=== PATIENT | male | born 1980 | race African-American/Black ===

== ENCOUNTER 2017-01-30 11:34 | Inpatient (IN) | payer BC ==
--- NOTE | ~2017-01-30 | CT2 ---
[facility] A Service of [facility] & [facility] RADIOLOGY TEXT RESULTS PATIENT: BRIT HUGHES JR LOCATION: [facility] 218-01 : [birth year] UNIT #: [id number] AGE: [address]: Keila Langston MD SEX: M ORDER DR: [id number] [facility] [address] [place], [place] [address] [id number] I MR#: [id number] #: [id number] NAME: BRIT HUGHES JR : 1980 SEX: M STUDY DATE/TIME: 01/30/2017 19:46 UNIT: C2A ROOM: 218 STUDY DESCRIPTION: CT Abd and Pelv W Cont Attending Physician: Floresita López M.D. Referring Physician: Ramiro Zamarripa Ordering Physician: Floresita López M.D. Primary Care Physician: No Primary Care Physician MEDICAL IMAGING REPORT This report is preliminary unless electronic signature is present EXAM CT abdomen and pelvis with IV contrast HISTORY Bilateral groin pain and redness and drainage and abscess for [address] exam was performed with one or more of the following radiation dose reduction techniques: automatic control, adjustment of mA and/or kV according to patient size, and iterative reconstruction. FINDINGS IV contrast CT abdomen and pelvis was performed with no prior study for comparison. CT ABDOMEN: Diffuse fatty infiltration of the liver. No hepatic mass or biliary dilatation. Gallbladder, spleen, pancreas, kidneys, and adrenal glands are essentially unremarkable. Incidental 1 cm cyst in the lateral mid-right kidney. No ascites. No adenopathy. No bowel dilatation. CT PELVIS: Normal appendix. No free fluid. Mild adenopathy in the groin bilaterally measuring up to 1.4 cm in short axis dimension bilaterally. There is focal skin thickening and underlying subcutaneous stranding in the groin bilaterally, moderate on the right and mild on the left, suggesting cellulitis. No drainable fluid collection or abscess. Urinary bladder is normal. IMPRESSION 1. Focal skin thickening in the groin bilaterally with underlying subcutaneous stranding, moderate on the right and mild on the left suggesting cellulitis. No drainable fluid collection. 2. Mild adenopathy in the groin bilaterally measuring up to 1.4 cm in short axis dimension bilaterally could be reactive or inflammatory. [facility] A Service of [facility] & [facility] RADIOLOGY TEXT RESULTS PATIENT: BRIT HUGHES JR LOCATION: [facility] 218-01 : [birth year] UNIT #: [id number] AGE: [address]: Keila Langston MD SEX: M ORDER DR: No fatty infiltration of the liver. 3. Normal appendix. Dictated by... Tarun Mcintosh M.D. THIS IS AN ELECTRONICALLY VERIFIED REPORT Tarun Mcintosh M.D. at 01/31/2017 2:59 PM DFL/indira TD: 01/31/2017 01:32 JOB #: [id number] MEDICAL IMAGING REPORT Page 1 of 1 COPY
--- NOTE | ~2017-01-30 | HP ---
Unit #: [id number] #: [id number] Patient: BRIT HUGHES JR [id number] [address] [place], [place] [address] [id number] I MR#: [id number] NAME: BRIT HUGHES JR ROOM: 218 Age: 36 Sex: M Admission Date: 01/30/2017 : 1980 Attending Physician: Floresita López M.D. Referring Physician: Ramiro Zamarripa Primary Care Physician: Primary Care Physician No HISTORY AND PHYSICAL CHIEF COMPLAINT Abscess. HISTORY OF PRESENT ILLNESS The patient is a 36-year-old male with past medical history of hypertension, diabetes, who presented to [facility] for evaluation of the above. The patient states that he has had about a one-month history of intermittent abscesses involving the groin. He states that most recently it has been going on for about a week. He initially saw his primary care physician on 01/26/2017. He was placed on Bactrim which he has been taking as prescribed. He returned today and was told to go to the emergency department for further evaluation. He states that the area started as a boil and had become increasingly worse. The right groin is currently draining pus. He denies any fever. No cough or cold symptoms. No bowel or bladder problems. In the emergency department, he was given vancomycin and Zosyn. He was transferred to [facility] for admission. PAST MEDICAL HISTORY 1. Hypertension. 2. Diabetes. PAST SURGICAL HISTORY None. ALLERGIES No known allergies. HOME MEDICATIONS Include: 1. Metformin 500 mg b.i.d. 2. Amlodipine 5 mg daily. 3. Zestoretic 09/09.5, unknown frequency. 4. Bactrim DS b.i.d. SOCIAL HISTORY The patient lives with his . There is no tobacco or alcohol use. He works in the warehouse. FAMILY HISTORY Notable for both parents having diabetes. Unit #: [id number] #: [id number] Patient: BRIT HUGHES JR REVIEW OF SYSTEMS A complete review of systems is negative except as indicated in the HPI. The patient states that he has been on other antibiotics as well. The most recent antibiotic was Bactrim. The patient states that he does not routinely check his blood sugars at home. PHYSICAL EXAMINATION VITAL SIGNS: Temperature 97.5, pulse 78, respirations 20, blood pressure 108/78, oxygen saturation 100% on room air. GENERAL: The patient is a very pleasant male who is awake and alert in no acute distress. HEENT: Head is atraumatic. Mucous membranes are moist. NECK: Supple. Trachea is midline. LUNGS: Clear to auscultation bilaterally with no increased work of breathing. HEART: Regular rate and rhythm. ABDOMEN: Soft, nontender. Bowel sounds present in all four quadrants. GENITOURINARY: The right inguinal area demonstrates an approximately 2 x 1 cm area of induration that extends into the right scrotum. He is tender to palpation in this area. There is also yellow fluid actively draining. The left inguinal area demonstrates induration as well. NEUROLOGIC: Patient is awake and alert. He follows commands. PSYCHIATRIC: Mood and affect are normal. Patient is cooperative. SKIN: Demonstrates the previously described abnormalities. DIAGNOSTIC STUDIES LABORATORY: Comprehensive metabolic panel notable for glucose of 193. Complete blood count notable for hemoglobin 12.9, hematocrit 37.2. Lactic acid 1.7. ASSESSMENT The patient is a 36-year-old male with: 1. Bilateral groin abscesses/cellulitis possibly involving the scrotum as well. 2. Hypertension. 3. Diabetes. PLAN 1. Admit to med-surg. 2. N.p.o. until CT results. 3. CT of abdomen and pelvis with IV contrast for further evaluation of groin and possibly scrotal abscesses. 4. N.p.o. after midnight for possible surgical intervention. 5. Consult [facility] regarding groin/scrotal abscess. 6. Blood cultures x2. 7. Wound culture and sensitivity. 8. Vancomycin IV and Zosyn IV pending further workup. 9. P.r.n. morphine. 10. P.r.n. Zofran. 11. Hemoglobin A1c. 12. Low-dose sliding scale insulin with Accu-Cheks. 13. Repeat labs in the morning. 14. SCDs for DVT prophylaxis. 15. Additional workup and consultants based on above. Unit #: [id number] #: [id number] Patient: BRIT HUGHES Dictated by Floresita López M.D. SUMIT/haven TD: 01/30/2017 20:13 JOB #: [id number] HISTORY AND PHYSICAL Page 1 of 1 X Floresita López MD HISTORY AND PHYSICAL
--- NOTE | ~2017-01-30 | CO ---
Unit #: [id number] #: [id number] Patient: BRIT HUGHES JR [id number] [address] [place], [place] [address] [id number] I MR#: [id number] NAME: BRIT HUGHES JR ROOM: 218 Age: 36 Sex: M Admission Date: 01/30/2017 : 1980 Attending Physician: Keila Langston M.D. Consultation Date: 01/31/2017 CONSULTATION REPORT HISTORY OF PRESENT ILLNESS A 36-year-old, black male, acute on chronic hidradenitis suppurativa of both groin areas, right side greater than the left with increased drainage over the last [address] scan however shows no drainable abscess in either groin. Wound culture is pending. This patient is a diabetic, hypertensive, slightly obese black male. He is a nonsmoker and nondrinker. Does work outside of the home. ALLERGIES He has no known allergies. MEDICATIONS As listed per nurse's notes, including Glucophage and amlodipine. PHYSICAL EXAMINATION GENERAL: Cooperative, alert white male. Oriented x3. HEENT: Clear. There is no jaundice. Pupils are equal and reactive to light and accommodation. CHEST: Clear to auscultation and percussion. In both axillae, there does not appear to be any active hidradenitis. ABDOMEN: Soft, nontender. No masses. CARDIAC: Rhythm is regular. No murmurs. : In both groin areas, especially on the right side, there is some drainage and oozing of the sweat glands, consistent with hidradenitis. This extends down into both groin areas in between both legs up on the right area of the scrotum a little bit. There does not appear to be any in the perineal area or other areas. EXTREMITIES: Full range of motion. 1 to 2+ peripheral pulses. IMPRESSION Acute on chronic hidradenitis suppurativa of both groin areas, right greater than left with no drainable abscess. PLAN At this time, we will use local care. If he improves, we will continue present therapy. If he does not, we will take him to surgery at a later point. Dictated by... Oscar Lynne M.D. RICHARD/marlin Unit #: [id number] #: [id number] Patient: ELLENBRIT JR TD: 01/31/2017 06:47 JOB #: [id number] CONSULTATION REPORT Page 1 of 1 X Oscar Lynne MD CONSULTATION REPORT
--- NOTE | ~2017-01-30 | DS ---
Unit #: [id number] #: [id number] Patient: BRIT HUGHES JR [id number] [address] [place], [place] [address] [id number] I MR#: [id number] NAME: BRIT HUGHES JR ROOM: 218 Age: 36 Sex: M Admission Date: 01/30/2017 : 1980 Discharge Date: 02/01/2017 Attending Physician: Keila Langston M.D. Referring Physician: Ramiro Zamarripa Primary Care Physician: No Primary Care Physician DISCHARGE SUMMARY REASON FOR ADMISSION Bilateral groin abscess. HISTORY OF PRESENT ILLNESS/HOSPITAL COURSE Please see H and P for complete details of initial partial hospital stay. Patient underwent CT of abdomen and pelvis on 01/30/2017 for concern for possible larger abscess and/or free fluid within the pelvis/scrotal area with focal skin thickening, which was noted bilaterally, moderate on the right and mild on the left suggesting more cellulitis but no acute abscess was noted. Consultation was placed to [facility] for evaluation of two bilateral groin abscessed. They recommended initial IV antibiotics and now have been transitioned to p.o. antibiotics. No surgical intervention was done while the patient was here. Patient did undergo an I and D while in the emergency room. Wound cultures did not yield any acute bacterial growth. Blood cultures have been unremarkable as well. In regards to his past medical history of diabetes, his hemoglobin A1c is 6.8%. He was maintained on routine medications while he was here. At this point in time, the patient has currently been cleared for discharge by [facility]. He will be given a prescription for Bactroban b.i.d., as well as doxycycline for an additional ten days. He will followup with [facility], Dr. Arevalo in approximately seven days. Followup with PCP in seven to ten days. FINAL DISCHARGE DIAGNOSES 1. Bilateral groin abscess likely secondary to hydradenitis suppurativa. 2. Diabetes with fair control. Hemoglobin A1c 6.8%. 3. Hypertension. FINAL DISCHARGE MEDICATIONS 1. Doxycycline 100 mg p.o. b.i.d. x10 days. 2. Bactroban topical b.i.d. 3. Glucophage 500 mg p.o. b.i.d. 4. Norvasc 5 mg p.o. daily. 5. Lisinopril 10 mg p.o. daily. DISCHARGE CONDITION Stable. Unit #: [id number] #: [id number] Patient: BRIT HUGHES JR DISCHARGE DISPOSITION Home. FOLLOWUP Followup with PCP/[facility] as stated above. Dictated by... Tasha Whalen/baron TD: 02/03/2017 07:24 JOB #: [id number] DISCHARGE SUMMARY Page 1 of 1 X Keila Langston MD X DISCHARGE SUMMARY
[2017-01-30] MEDS ORDERED: GLUCOPHAGE500 MG PO (11:46)
[2017-01-30] MEDS ORDERED: LISINOPRIL PO (11:46)
[2017-01-30] MEDS ORDERED: AMLODIPINE BESYL5 MG PO (11:47)
[2017-01-30 12:49] LABS: BASOPHIL% 0.6 % (0-2.5); EOSINOPHIL# 0.1 X10e3 (0-0.7); EOSINOPHIL% 1.2 % (0.0-7.0); HEMATOCRIT 37.2 % (38.0-50.0); HEMOGLOBIN 12.9 gm/dL (13.0-16.0); LYMPHOCYTE# 1.7 X10e3 (1.0-3.5); MEAN CELL VOLUME 87.4 FL (83-96); MEAN CORPUSCULAR HEMOGLOBIN 30.2 PG (28-34); MEAN CORPUSCULAR HGB CONC 34.6 g/dL (30-36); MEAN PLATELET VOLUME 7.1 FL (6.5-11.5); MONOCYTE# 0.5 X10e3 (0-1.0); MONOCYTE% 7.4 % (3.0-12.0); NEUTROPHIL# 4.5 X10e3 (1.5-7.1); NEUTROPHIL% 65.8 % (40-75); PLATELET COUNT 406 X10e3 (140-420); RED BLOOD COUNT 4.26 X10e (3.90-5.60); RED CELL DISTRIBUTION WIDTH 14.3 % (11.0-15.5); WHITE BLOOD COUNT 6.8 X10e3 (4.0-10.5)
[2017-01-30 13:00] LABS: DIFF IND NO
[2017-01-30 13:14] LABS: ALBUMIN SERUM 4.2 g/dL (3.5-5.0); BILIRUBIN, DIRECT 0.1 mg/dL (0.0-0.2); BILIRUBIN,INDIRECT 0.3 mg/dL (0.0-0.9); BILIRUBIN,TOTAL 0.4 mg/dL (0.2-2.0); BUN/CREATININE RATIO 11.81; CALCIUM SERUM 9.1 mg/dL (8.4-10.2); CREATININE SERUM 1.1 mg/dL (0.6-1.4); GLOM FILT RATE Estimated 98.2 mL/min (>60); POTASSIUM 3.8 mmol/L (3.5-5.1); PROTEIN TOTAL SERUM 8.3 g/dL (6.0-8.3)
[2017-01-30] MEDS ORDERED: BACTRIM DS TAB1 EACH PO (18:23)
[2017-01-30] MEDS ORDERED: ZESTORETIC 20-1 EAC1 (18:23)
[2017-01-31 05:13] LABS: HEMATOCRIT 36.8 % (38.0-50.0); HEMOGLOBIN 12.1 gm/dL (13.0-16.0); MEAN CELL VOLUME 89.4 FL (83-96); MEAN CORPUSCULAR HEMOGLOBIN 29.3 PG (28-34); MEAN CORPUSCULAR HGB CONC 32.8 g/dL (30-36); MEAN PLATELET VOLUME 7.6 FL (6.5-11.5); RED BLOOD COUNT 4.12 X10e (3.90-5.60); RED CELL DISTRIBUTION WIDTH 14.2 % (11.0-15.5); WHITE BLOOD COUNT 6.8 X10e3 (4.0-10.5)
[2017-01-31 06:05] LABS: ALBUMIN SERUM 3.4 g/dL (3.5-5.0); BILIRUBIN,TOTAL 0.4 mg/dL (0.2-2.0); BUN/CREATININE RATIO 11.11; CALCIUM SERUM 8.6 mg/dL (8.4-10.2); CREATININE SERUM 0.9 mg/dL (0.6-1.4); GLOM FILT RATE Estimated 125.1 mL/min (>60); POTASSIUM 3.8 mmol/L (3.5-5.1); PROTEIN TOTAL SERUM 6.4 g/dL (6.0-8.3)
[2017-02-01] MEDS ORDERED: ZESTRIL10 M1 PO (15:40)
[2017-02-01] MEDS ORDERED: BACTROBAN15 GM TOP (15:40)
[2017-02-01] MEDS ORDERED: DOXYCYCLINE HY100 M3 PO (15:41)
== END 2017-02-01 16:26 | disposition home or self-care (01) | DRG 581 ==
LOC: SED 11:34 → SEDOF 14:01 → SED 14:01 → SEDOF 18:03 → C2A 18:03 → SEDOF 18:45 → C2A 01-31 07:32
PROVIDERS: Emergency Medicine; Family Medicine
PROC: 0J9C0ZZ Drainage of Pelvic Region Subcutaneous Tissue and Fascia, Open Approach (ICD-10-PCS; principal; 2017-01-30)
DX: L73.2 Hidradenitis suppurativa (principal); L02.214 Cutaneous abscess of groin; I10 Essential (primary) hypertension; E11.9 Type 2 diabetes mellitus without complications; Z79.84 Long term (current) use of oral hypoglycemic drugs; L03.314 Cellulitis of groin
CPT/HCPCS: 74177; 80048; 80053; 80076; 82947; 83036; 83605; 85025; 85027; 87040; 87070; 87205; 96365; 96366; 99285; J1815; J2270; J2543; J3370; Q9967

== ENCOUNTER 2017-03-05 10:33 | Observation (INO) | payer BC ==
--- NOTE | ~2017-03-05 | DS ---
Unit #: [id number] #: [id number] Patient: BRIT HUGHES JR [id number] [address] [place], [place] [address] [id number] I MR#: [id number] NAME: BRIT HUGHES JR ROOM: 47 Age: 36 Sex: M Admission Date: 03/05/2017 : 1980 Discharge Date: 03/06/2017 Attending Physician: Jose Arevalo M.D. DISCHARGE SUMMARY HISTORY AND HOSPITAL COURSE Mr. Hughes is a 36-year-old gentleman, who has severe bilateral inguinal hidradenitis and was brought in the morning of surgery, where he underwent extensive bilateral inguinal resection of his hidradenitis. He was admitted to the hospital postoperatively to observe for bleeding and to make sure we had adequate pain control. This morning he is doing well. He is able to ambulate. His wounds were clean, dry, and intact. He is afebrile with stable vital signs. Hemoglobin was stable postop. He will be discharged home in stable condition with instructions to undergo diet as tolerated. He can ambulate ad edy, but do no strenuous activity or lifting. He may shower and change his dressings as needed. He is to follow up in the office in 2 weeks. Prescription for [place] 7.5 mg tablets and Augmentin 875 mg tablets were left on the chart. Med reconciliation sheet was completed. Dictated by... Tasha Hoover/marlin TD: 03/06/2017 23:06 JOB #: [id number] DISCHARGE SUMMARY Page 1 of 1 X Jose Arevalo MD X DISCHARGE SUMMARY
--- NOTE | ~2017-03-05 | OR ---
Unit #: [id number] #: [id number] Patient: BRIT HUGHES JR [id number] [address] [address] [id number] I MR#: [id number] NAME: BRIT HUGHES JR ROOM: 476 Date of Procedure: 03/05/2017 Admission Date: 03/05/2017 Surgeon: Jose Arevalo M.D. : 1980 Attending Physician: Jose Arevalo M.D. Primary Care Physician: Primary Care Physician No OPERATIVE REPORT PREOPERATIVE DIAGNOSIS Bilateral chronic and recurrent inguinal hidradenitis. POSTOPERATIVE DIAGNOSIS Bilateral chronic and recurrent inguinal hidradenitis. PROCEDURE PERFORMED Bilateral resection of inguinal hidradenitis. ANESTHESIA General endotracheal anesthesia. ESTIMATED BLOOD LOSS 100 mL. INDICATIONS FOR PROCEDURE A 36-year-old gentleman who has had chronic recurrent hidradenitis in both inguinal regions extending from the proximal inguinal crease down into the medial thigh and perineum. DESCRIPTION OF PROCEDURE The patient was admitted to [facility], positively identified, transported to the operating room, and after induction of general endotracheal anesthesia, he received IV antibiotics. He was placed in the frog-leg position and secured. The pubic, medial thigh and perineal area were shaved, and he was prepped and draped in the usual sterile fashion. I had palpated the area of induration and palpable disease, and a wedge excision around this area was performed. We dissected down and removed all the palpable disease to good clean soft tissue margins. We were careful to avoid any structures in the femoral triangle. Superficial veins were clamped, divided, and ligated. After we had completely resected the right side, we irrigated and ensured hemostasis and then closed the subcutaneous tissue and dermis with 2-0 Vicryl interrupted suture and then the skin was reapproximated with 3-0 nylon running suture. On the right side, the same procedure was performed. A wedge excision was made around all the palpable and visible disease and dissected out of the subcutaneous tissue. Again, I irrigated and obtained hemostasis, closed the subcutaneous tissue and dermis with 2-0 Vicryl interrupted suture, reapproximated the skin with 3-0 nylon running suture. The drapes were removed. The area was cleaned with saline and alcohol and then a dry sterile dressing with fishnet pants was placed. Sponges and needle counts were correct x3. The patient tolerated Unit #: [id number] #: [id number] Patient: BRIT HUGHES JR the procedure well and was transported to recovery in stable condition. Findings were discussed with his family. He will be kept overnight for pain control and instructions on wound care in the morning. Dictated by... Tasha Hoover/marlin TD: 03/06/2017 04:51 JOB #: [id number] OPERATIVE REPORT Page 1 of 1 X Jose Arevalo MD PROCEDURE OPERATIVE NOTE
--- NOTE | ~2017-03-05 | EKG ---
PATIENT: BRIT HUGHES UNIT #: [id number] Ventricular Rate: 72 BPM Atrial Rate: 72 BPM P-R Interval: 166 ms QRS Duration: 80 ms Q-T Interval: 386 ms QTC Calculation(Bezet): 422 ms P [place]: 32 degrees Calculated R [place]: 54 degrees Calculated T [place]: 11 degrees Diagnosis Line: Normal sinus rhythm Diagnosis Line: Normal ECG Diagnosis Line: No previous ECGs available Diagnosis Line: Confirmed by SIRIA CARR MD ([id number]) on Diagnosis Line: 03/06/2017 4:00:06 PM INTERPRETING MD: ANUM
[~2017-03-05 10:33] MED LIST: AMLODIPINE BESYL5 MG PO; BACTRIM DS TAB1 EACH PO; BACTROBAN15 GM TOP; DOXYCYCLINE HY100 M3 PO; GLUCOPHAGE500 MG PO; LISINOPRIL PO; ZESTORETIC 20-1 EAC1; ZESTRIL10 M1 PO
[2017-03-05 11:26] LABS: BASOPHIL# 0.1 X10e3 (0-0.3); BASOPHIL% 1.1 % (0-2.5); EOSINOPHIL# 0.2 X10e3 (0-0.7); HEMATOCRIT 38.9 % (38.0-50.0); HEMOGLOBIN 12.9 gm/dL (13.0-16.0); LYMPHOCYTE# 2.6 X10e3 (1.0-3.5); LYMPHOCYTE% 36.5 % (17.0-45.0); MEAN CELL VOLUME 88.5 FL (83-96); MEAN CORPUSCULAR HEMOGLOBIN 29.2 PG (28-34); MEAN PLATELET VOLUME 6.7 FL (6.5-11.5); MONOCYTE# 0.6 X10e3 (0-1.0); MONOCYTE% 8.8 % (3.0-12.0); NEUTROPHIL# 3.6 X10e3 (1.5-7.1); NEUTROPHIL% 50.6 % (40-75); PLATELET COUNT 404 X10e3 (140-420); RED CELL DISTRIBUTION WIDTH 13.9 % (11.0-15.5)
[2017-03-05 11:32] LABS: DIFF IND NO
[2017-03-05 11:52] LABS: BUN/CREATININE RATIO 11.11; CALCIUM SERUM 9.1 mg/dL (8.4-10.2); CREATININE SERUM 0.9 mg/dL (0.6-1.4); GLOM FILT RATE Estimated 125.1 mL/min (>60); POTASSIUM 3.6 mmol/L (3.5-5.1)
[2017-03-06 01:59] LABS: BASOPHIL% 0.4 % (0-2.5); EOSINOPHIL% 0.1 % (0.0-7.0); HEMATOCRIT 37.1 % (38.0-50.0); HEMOGLOBIN 12.3 gm/dL (13.0-16.0); LYMPHOCYTE# 1.5 X10e3 (1.0-3.5); LYMPHOCYTE% 13.9 % (17.0-45.0); MEAN CELL VOLUME 88.8 FL (83-96); MEAN CORPUSCULAR HEMOGLOBIN 29.5 PG (28-34); MEAN CORPUSCULAR HGB CONC 33.2 g/dL (30-36); MONOCYTE# 0.5 X10e3 (0-1.0); MONOCYTE% 5.1 % (3.0-12.0); NEUTROPHIL# 8.6 X10e3 (1.5-7.1); NEUTROPHIL% 80.5 % (40-75); PLATELET COUNT 412 X10e3 (140-420); RED BLOOD COUNT 4.18 X10e (3.90-5.60); RED CELL DISTRIBUTION WIDTH 13.6 % (11.0-15.5)
[2017-03-06 02:01] LABS: DIFF IND NO; WHITE BLOOD COUNT 10.7 X10e3 (4.0-10.5)
[2017-03-06 02:26] LABS: CALCIUM SERUM 8.9 mg/dL (8.4-10.2); CREATININE SERUM 0.9 mg/dL (0.6-1.4); GLOM FILT RATE Estimated 125.1 mL/min (>60); MAGNESIUM 2.1 mg/dL (1.6-3.0); POTASSIUM 3.9 mmol/L (3.5-5.1)
[2017-03-06] MEDS ORDERED: AUGMENTIN PO (07:58)
[2017-03-06] MEDS ORDERED: HYDROCODON-ACE1 EAC9 PO (07:58)
[2017-03-06] MEDS ORDERED: DOCUSATE SODIU100 MG PO (07:58)
== END 2017-03-06 10:15 | disposition home or self-care (01) | DRG 607 ==
LOC: CSUR 10:33 → CPACUOF 15:10 → CSUR 15:19 → CPACUOF 15:19 → C4C 18:00
PROVIDERS: Specialist
DX: L73.2 Hidradenitis suppurativa (principal); E11.9 Type 2 diabetes mellitus without complications; Z79.84 Long term (current) use of oral hypoglycemic drugs; I10 Essential (primary) hypertension
CPT/HCPCS: 80048; 82947; 83735; 85025; 87070; 87075; 87076; 87205; 88304; 93005; 94760; 96374; 96376; G0378; J1170; J1885; J2250; J2405; J3010; J3370

== ENCOUNTER 2017-03-11 21:22 | Emergency (ER) | payer BC ==
[~2017-03-11 21:22] MED LIST changes: +AUGMENTIN PO; +DOCUSATE SODIU100 MG PO; +HYDROCODON-ACE1 EAC9 PO
[2017-03-12 00:47] LABS: BASOPHIL# 0.1 X10e3 (0-0.3); BASOPHIL% 0.5 % (0-2.5); EOSINOPHIL# 0.2 X10e3 (0-0.7); EOSINOPHIL% 1.6 % (0.0-7.0); HEMATOCRIT 37.7 % (38.0-50.0); HEMOGLOBIN 12.5 gm/dL (13.0-16.0); LYMPHOCYTE# 2.5 X10e3 (1.0-3.5); LYMPHOCYTE% 23.9 % (17.0-45.0); MEAN CELL VOLUME 88.8 FL (83-96); MEAN CORPUSCULAR HEMOGLOBIN 29.4 PG (28-34); MEAN CORPUSCULAR HGB CONC 33.1 g/dL (30-36); MEAN PLATELET VOLUME 7.2 FL (6.5-11.5); MONOCYTE% 9.4 % (3.0-12.0); NEUTROPHIL# 6.9 X10e3 (1.5-7.1); NEUTROPHIL% 64.6 % (40-75); PLATELET COUNT 553 X10e3 (140-420); RED BLOOD COUNT 4.24 X10e (3.90-5.60); RED CELL DISTRIBUTION WIDTH 13.6 % (11.0-15.5); WHITE BLOOD COUNT 10.7 X10e3 (4.0-10.5)
[2017-03-12 00:51] LABS: DIFF IND NO
== END 2017-03-12 01:13 | disposition home or self-care (01) ==
LOC: CED 21:22
PROVIDERS: Nurse Practitioner Family
DX: Z48.01 Encounter for change or removal of surgical wound dressing (principal); I10 Essential (primary) hypertension; E11.9 Type 2 diabetes mellitus without complications; Z79.899 Other long term (current) drug therapy
CPT/HCPCS: 36415; 85025; 99283